=== PATIENT | female | born 1945 | race Caucasian/White ===

== ENCOUNTER → 2016-11-13 | Day surgery (SDC) | payer MEDICARE, OTHER ==
[~2016-11-13] MED LIST: ADVIL200 M1 PO; KCL PO; LASIX PO; LISINOPRIL2.5 MG PO; NEURONTIN PO
--- NOTE | ~2016-11-13 | OR ---
Unit #: [id number] #: [id number] Patient: MELISSA DE LUNA [id number] [address] [place], [place] [address] [id number] O MR#: [id number] NAME: MELISSA DE LUNA ROOM: Date of Procedure: 11/13/2016 Admission Date: 11/13/2016 Surgeon: Rodrigo Vanessa M.D. : 1945 Attending Physician: Rodrigo Vanessa M.D. Primary Care Physician: Jacy Mancia Aprn OPERATIVE REPORT PREOPERATIVE DIAGNOSES Back pain, radiculopathy, spondylolisthesis, herniated nucleus pulposus, lumbar spinal stenosis, lumbar spondylosis. POSTOPERATIVE DIAGNOSES Back pain, radiculopathy, spondylolisthesis, herniated nucleus pulposus, lumbar spinal stenosis, lumbar spondylosis. PROCEDURE PERFORMED Lumbar epidural steroid injection with fluoroscopic guidance for needle localization. INDICATIONS FOR PROCEDURE This is a 71-year-old female with history of worsening back, right hip as well as lower extremity pains. This did not respond to conservative treatment. Workup demonstrated multilevel multifactorial abnormalities. There was a right sacral insufficiency fracture. There also was severe spinal stenosis due to disk extrusion and facet disease at L4-5 with moderate stenosis at L3-4 and L5-S1 also due to discogenic disease. There was anterolisthesis at L4-L5 and L5-S1. Plan is for a trial of epidural steroids. Risks and benefits have all been reviewed. DESCRIPTION OF PROCEDURE The patient was placed in a seated position. Standard monitors were applied. Sterile prep and drape of the lumbar area was performed. The skin then at the L4-L5 level was localized with 1% lidocaine. An 18-gauge Le Vision Picturestead needle was then advanced via loss of resistance technique and fluoroscopic guidance in toward the epidural space. The patient did not complain of pain or paresthesia during needle advancement. After confirming proper positioning with fluoroscopy and radiographic contrast, 80 mg of Depo-Medrol and 4 mL of 0.125% bupivacaine were deposited. The patient tolerated the procedure otherwise well and was discharged to the recovery room in stable condition. Dictated by... Rodrigo Vanessa M.D. LHP/modl Unit #: [id number] #: [id number] Patient: MELISSA DE LUNA TD: 11/14/2016 01:16 JOB #: [id number] CC: Chris Frazier M.D. OPERATIVE REPORT X Rodrigo Vanessa MD X PROCEDURE OPERATIVE NOTE
== END | disposition home or self-care (01) ==
LOC: CCSC 08:02
DX: M51.16 Intervertebral disc disorders with radiculopathy, lumbar region (principal); M47.26 Other spondylosis with radiculopathy, lumbar region; M43.16 Spondylolisthesis, lumbar region; M48.06 Spinal stenosis, lumbar region
CPT/HCPCS: J1040; J2250

== ENCOUNTER → 2016-12-02 | Day surgery (SDC) | payer MEDICARE ==
--- NOTE | ~2016-12-02 | OR ---
Unit #: [id number] #: [id number] Patient: MELISSA DE LUNA [id number] [address] [place], [place] [address] [id number] O MR#: [id number] NAME: MELISSA DE LUNA ROOM: Date of Procedure: 12/02/2016 Admission Date: 12/02/2016 Surgeon: Rodrigo Vanessa M.D. : 1945 Attending Physician: Rodrigo Vanessa M.D. Primary Care Physician: Jacy Mancia Aprn OPERATIVE REPORT PREOPERATIVE DIAGNOSES 1. Herniated nucleus pulposus. 2. Spinal stenosis. 3. Spondylolisthesis. 4. Back pain. 5. Radiculopathy. POSTOPERATIVE DIAGNOSES 1. Herniated nucleus pulposus. 2. Spinal stenosis. 3. Spondylolisthesis. 4. Back pain. 5. Radiculopathy. PROCEDURE PERFORMED Lumbar epidural steroid injection with fluoroscopic guidance for needle localization. INDICATIONS FOR PROCEDURE The patient is a 71-year-old female, who presented with approximately 6-month history of back pain and some mild radiculopathy. Workup demonstrated multilevel multifactorial degenerative disk disease, facet disease, spinal stenosis, disk herniations at L3-L4 and L4-L5, spondylolisthesis at L4-L5 and L5-S1 as well as sacral insufficiency fracture. It is fine to settle with conservative measures. Decision was made to give a trial of epidural steroids, initial one done about 3 weeks ago and found there was some substantial change in her symptom complex. The pathology with Prilosec injection does not work, we would follow with any further injections. If the problems due mainly to her discogenic issues, as I would expect some response due to the sacral insufficiency fracture, it may not change it all with the epidurals and would likely need to be treated medically. This all been discussed with the patient. DESCRIPTION OF PROCEDURE The patient was placed in a seated position. Standard monitors were applied. Sterile prep and drape of the lumbar area was performed. The skin then at the L4 level was localized with 1% lidocaine. An 18-gauge Voolgo needle was then advanced via loss of resistance technique and fluoroscopic guidance in toward the epidural space. The patient did not complain of pain or paresthesia during needle advancement. After confirming proper needle tip positioning with fluoroscopy and radiographic Unit #: [id number] #: [id number] Patient: MELISSA DE LUNA, a dose of 80 mg of Depo-Medrol and 4 mL of 0.125% bupivacaine were deposited. The patient tolerated the procedure otherwise well and was discharged to the recovery room in stable condition. Dictated by... Leandra Marx/bautista TD: 12/02/2016 22:32 JOB #: [id number] OPERATIVE REPORT Page 1 of 1 X Rodrigo Vanessa MD X PROCEDURE OPERATIVE NOTE
== END | disposition home or self-care (01) ==
LOC: CCSC 07:08
PROVIDERS: Pain Medicine Pain Medicine
PROC: 3E0R3BZ Introduction of Anesthetic Agent into Spinal Canal, Percutaneous Approach (ICD-10-PCS; 2016-12-02)
PROC: 3E0R33Z Introduction of Anti-inflammatory into Spinal Canal, Percutaneous Approach (ICD-10-PCS; principal; 2016-12-02 08:15)
DX: M51.16 Intervertebral disc disorders with radiculopathy, lumbar region (principal); M48.06 Spinal stenosis, lumbar region; M43.16 Spondylolisthesis, lumbar region; M80.08XS Age-related osteoporosis with current pathological fracture, vertebra(e), sequela; I10 Essential (primary) hypertension; I34.1 Nonrheumatic mitral (valve) prolapse; R01.1 Cardiac murmur, unspecified; Z88.5 Allergy status to narcotic agent; Z83.3 Family history of diabetes mellitus; Z82.49 Family history of ischemic heart disease and other diseases of the circulatory system
CPT/HCPCS: J1040; J2250

== ENCOUNTER → 2016-12-11 | Day surgery (SDC) | payer MEDICARE ==
--- NOTE | ~2016-12-11 | OR ---
Unit #: [id number] #: [id number] Patient: MELISSA DE LUNA [id number] [address] [place], [place] [address] [id number] O MR#: [id number] NAME: MELISSA DE LUNA ROOM: Date of Procedure: 12/11/2016 Admission Date: 12/11/2016 Surgeon: Rodrigo Vanessa M.D. : 1945 Attending Physician: Rodrigo Vanessa M.D. Primary Care Physician: Jacy Mancia Aprn OPERATIVE REPORT JOB NOTE: CC: [facility]. PREOPERATIVE DIAGNOSES Back pain, radiculopathy, herniated nucleus pulposus, spinal stenosis, facet spondylosis. POSTOPERATIVE DIAGNOSES Back pain, radiculopathy, herniated nucleus pulposus, spinal stenosis, facet spondylosis. PROCEDURE PERFORMED Lumbar epidural steroid injection with fluoroscopic guidance for needle localization. INDICATIONS FOR PROCEDURE The patient is a 71-year-old female who presented with back and intermittent lower extremity pain, radiating to her foot. Workup demonstrated multilevel, multifactorial disk abnormalities from L3 through S1. She failed to settle with conservative treatments. Decision was made to give a trial of epidural steroids. Workup did demonstrate disk extrusion with severe spinal stenosis. She had 2 injections at this point, the first one at L5 and the second at L4, this will be at L3 level. The first injection helped her minimally if at all, second injection has given some moderate improvement. She still is having fairly significant symptoms though. She does have severe facet disease and may be this is a contributor as well or even primary issue with a radicular component of the pain. We elected to proceed with an epidural steroid injection. We will follow up the patient. If it does not settle things, we may look a trial of diagnostic and therapeutic facet injections at L4-L5 and L5-S1. DESCRIPTION OF PROCEDURE The patient was placed in a seated position. Standard monitors were applied. Sterile prep and drape of the lumbar area was performed. The skin at the L3 level was localized with 1% lidocaine. An 18-gauge Integrien needle was then advanced via loss of resistance technique and fluoroscopic guidance in toward the epidural space. After confirming proper positioning with fluoroscopy and radiographic contrast, 80 mg of Depo-Medrol and 4 mL of 0.125% bupivacaine were deposited. The patient tolerated the procedure well and was discharged to the recovery room in stable condition. Unit #: [id number] #: [id number] Patient: MELISSA DE LUNA Dictated by... Leandra Marx/bautista TD: 12/12/2016 01:36 JOB #: [id number] OPERATIVE REPORT Page 1 of 1 X Rodrigo Vanessa MD X PROCEDURE OPERATIVE NOTE
== END | disposition home or self-care (01) ==
LOC: CCSC 08:32
DX: M51.16 Intervertebral disc disorders with radiculopathy, lumbar region (principal); M48.06 Spinal stenosis, lumbar region; M47.816 Spondylosis without myelopathy or radiculopathy, lumbar region
CPT/HCPCS: J1040; J2250

== ENCOUNTER → 2017-01-15 | Day surgery (SDC) | payer MEDICARE ==
--- NOTE | ~2017-01-15 | OR ---
Unit #: [id number] #: [id number] Patient: MELISSA DE LUNA [id number] [address] [place], [place] [address] [id number] O MR#: [id number] NAME: MELISSA DE LUNA ROOM: Date of Procedure: 01/15/2017 Admission Date: 01/15/2017 Surgeon: Rodrigo Vanessa M.D. : 1945 Attending Physician: Rodrigo Vanessa M.D. Primary Care Physician: Jacy Mancia Aprn OPERATIVE REPORT PREOPERATIVE DIAGNOSES Back pain, lumbar spondylosis, degenerative facet disease. POSTOPERATIVE DIAGNOSES Back pain, lumbar spondylosis, degenerative facet disease. PROCEDURE PERFORMED Lumbar facet injection x2 levels with intravenous sedation and fluoroscopic guidance for needle localization. INDICATIONS FOR PROCEDURE The patient is a 71-year-old female, who presented with primarily back pain with some radiculopathy. Workup demonstrated severe facet disease worse at L4-L5, L5-S1, and L3-L4 as well as a disk herniation at the L3-L4 level causing moderate stenosis with disk extrusion at L4-L5 causing severe stenosis and more moderate stenosis due spondylolisthesis at the L5-S1 level. The patient was given a trial of epidural steroids. First injection not helped very much. Second injection did help her leg pain. Third injection helped the leg pain further, but minimally help the back. Those injections were completed about 5 weeks ago. The patient returned to work and much of her leg pain returned. Based on her pathology at her facet joint, plan is for trial of a diagnostic and therapeutic facet injection. The patient will follow up with Dr. Frazier in the near future. DESCRIPTION OF PROCEDURE The patient was placed in a seated position. Standard monitors were applied. Sterile prep and drape of the lumbar area was performed. The skin then overlying the left-sided L4-L5 and L5-S1 facets was localized with 1% lidocaine after I had been identified with fluoroscopy. At these two levels, 22-gauge Quincke point spinal needle was advanced with fluoroscopic guidance to bring the needle tip to within the edge of the respective facet joints. After confirming proper positioning in this manner, a dose of 1 mL of a mixture of 80 mg of Depo-Medrol and 3 mL of 0.25% bupivacaine was deposited at each facet joint, 0.5 mL within the joint and 0.5 mL just outside the joint. The needles were flushed and removed. The exact same procedure was then repeated on the right at the L4-L5 and L5-S1 facet joints. Again, fluoroscopy was used to confirm proper needle tip positioning within the edge of those respective joints. A dose of 1 mL of the previously mentioned mixture was used, 0.5 mL within, 0.5 mL just outside the edge of the joint. Unit #: [id number] #: [id number] Patient: MELISSA DE LUNA Dictated by... Leandra Marx/bautista TD: 01/16/2017 03:11 JOB #: [id number] OPERATIVE REPORT Page 1 of 1 X Rodrigo Vanessa MD X PROCEDURE OPERATIVE NOTE
== END | disposition home or self-care (01) ==
LOC: CCSC 09:01
DX: M47.26 Other spondylosis with radiculopathy, lumbar region (principal); M51.16 Intervertebral disc disorders with radiculopathy, lumbar region; M48.06 Spinal stenosis, lumbar region
CPT/HCPCS: J1040; J2250